=== PATIENT | female | born 1960 | race Hispanic/Latino ===

== ENCOUNTER 2024-06-20 16:56 | Emergency (ER) | payer MEDICARE, OTHER ==
[~2024-06-20] VITALS: Ht 160 cm; Wt 77.1 kg
[2024-06-20 17:00] VITALS: PULSE 69; RESP 16; TEMP 98.8; O2SAT 97
[2024-06-20] MEDS: KETOROLAC TROMETHAMINE 30 MG/ML VIAL IV STA (17:28)
[2024-06-20] MEDS: METOCLOPRAMIDE HCL 10 MG/2ML VIAL IV ONE (17:28)
== END 2024-06-20 18:55 | disposition home or self-care (01) ==
LOC: FSED 16:58
DX: R51.9 Headache, unspecified (principal); S40.012A Contusion of left shoulder, initial encounter; W01.0XXA Fall on same level from slipping, tripping and stumbling without subsequent striking against object, initial encounter; Y93.01 Activity, walking, marching and hiking; Y92.89 Other specified places as the place of occurrence of the external cause; I10 Essential (primary) hypertension; E11.65 Type 2 diabetes mellitus with hyperglycemia; E78.5 Hyperlipidemia, unspecified; G35 Multiple sclerosis
CPT/HCPCS: 73030; 80048; 99283; J1885; J2765